=== PATIENT | male | born 1990 | race Caucasian/White ===

== ENCOUNTER 2019-12-25 17:27 | Emergency (ER) | payer BC, SELFPAY ==
[2019-12-25 17:33] VITALS: PULSE 93; RESP 18; TEMP 37; O2SAT 96; BMI 30.7
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
--- NOTE | 2019-12-25 17:47 | XRR_ITS ---
PROCEDURE INFORMATION: Exam: XR Chest, 1 View Exam date and time: 12/25/2019 5:49 PM Age: 29 years old Clinical indication: Cough and other: Weakness; Additional info: Allergic reaction TECHNIQUE: Imaging protocol: XR of the chest Views: 1 view. COMPARISON: CR Chest 1 [place] [id number] 08/29/2018 8:40 PM FINDINGS: Lungs: Unremarkable. No consolidation. Pleural space: Unremarkable. No pleural effusion. No pneumothorax. Heart/Mediastinum: Unremarkable. No cardiomegaly. Diaphragm: Mild elevation of the left diaphragm. Bones/joints: Unremarkable. XR/XR chest 1V portable [id number] IMPRESSION: No acute finding.
--- NOTE | 2019-12-25 17:52 | ECG_ITS ---
[facility] Test Date: 2019-12-25 Pat Name: Naeem Menon Department: Room: Gender: Male [employer] Helper: : 1990 Requested By: Lalit Ng Order Number: [id number] Merlos MD: Kolton Solano M.D. Measurements Intervals [place] Rate: 87 P: 62 MA: 235 QRS: 76 QRSD: 92 T: 39 QT: 350 QTc: 422 Interpretive Statements SINUS RHYTHM WITH FIRST DEGREE AV BLOCK Compared to ECG 08/29/2018 20:32:39 First degree AV block now present Sinus tachycardia no longer present T-wave abnormality no longer present Electronically Signed On 12-26-2019 18:10:50 CDT by Kolton Solano M.D. [id number]
[2019-12-25 17:58] VITALS: BP 150/93; PULSE 92; RESP 16; O2SAT 97
[2019-12-25 18:30] LABS: Basophils % 0.3 %; Eosinophils # 0.1 10^3/uL (0.0-0.8); Eosinophils % 0.7 %; Hematocrit 43.6 % (42.0-52.0); Hemoglobin 14.8 g/dL (11.7-16.6); Lymphocytes # 2.4 10^3/uL (0.8-4.8); Lymphocytes % 25.7 %; Mean Corpuscular HGB Conc 33.9 g/dL (30.0-36.0); Mean Corpuscular Hemoglobin 31.6 pg (28.0-34.0); Monocytes # 0.4 10^3/uL (0.2-0.9); Monocytes % 4.3 %; Neutrophils # 6.51 10^3/uL (1.8-7.7); Neutrophils % 68.9 %; Nucleated Red Blood Cells % 0 %; Platelet Count 239 10^3/cmm (130-400); Red Blood Count 4.69 10^6/uL (4.1-5.3); White Blood Count 9.5 10^3/uL (4.0-10.0)
[2019-12-25 18:49] LABS: Alcohol Level 144 mg/dL (0-10); Anion Gap 15.5 (5-19); Blood Urea Nitrogen 7 mg/dL (6-20); Calcium 8.5 mg/dL (8.5-10.5); Carbon Dioxide 23 mmol/L (22-29); Chloride 107 mmol/L (98-107); Glomerular Filtration Rate 133.3 mL/min (90-130); Glucose 115 mg/dL (65-115); Osmolality Calculated 291 mOsm/kg (285-295); Potassium 3.5 mmol/L (3.5-5.1); Sodium 142 mmol/L (136-145)
[2019-12-25 18:52] LABS: Troponin T (5th) Once 9 ng/L (0-15)
[2019-12-25 19:08] VITALS: BP 161/87; PULSE 94; RESP 18; O2SAT 98
== END 2019-12-25 19:09 | disposition home or self-care (01) ==
PROVIDERS: Emergency Provider Nurse Practitioner Family; PCP Family Medicine
DX: T63.461A Toxic effect of venom of wasps, accidental (unintentional), initial encounter (principal)
CPT/HCPCS: 12345; 71045; 80048; 80307; 84484; 85025; 93005; 96374; 96375; 99283; J2930

== ENCOUNTER 2022-02-18 14:18 | Emergency (ER) | payer BC, SELFPAY ==
[2022-02-18 15:49] VITALS: BP 185/121; PULSE 97; RESP 18; TEMP 36.7; O2SAT 97; BMI 34.0
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
[2022-02-18] MEDS: tetanus-dipt-pertussis 0.5 mL SDV IM (16:19)
== END 2022-02-18 17:20 | disposition home or self-care (01) ==
PROVIDERS: Emergency Provider Nurse Practitioner Family; PCP Family Medicine
DX: S51.831A Puncture wound without foreign body of right forearm, initial encounter (principal); W22.8XXA Striking against or struck by other objects, initial encounter; Z23 Encounter for immunization
CPT/HCPCS: 73090; 90471; 90715; 99283